=== PATIENT | male | born 1960 | race Caucasian/White ===

== ENCOUNTER 2020-03-27 12:40 | Emergency (ER) | payer BC ==
[~2020-03-27] VITALS: Ht 177.8 cm; Wt 122.5 kg
[2020-03-27 13:18] LABS: BUN 28 mg/dl (7-24); CHLORIDE 105 mmol/L (98-107); POTASSIUM 4.9 mmol/L (3.5-5.1); SODIUM 137 mmol/L (136-145)
== END 2020-03-27 13:39 | disposition home or self-care (01) ==
LOC: ED 12:40
PROVIDERS: Emergency Medicine
DX: E87.5 Hyperkalemia (principal); I10 Essential (primary) hypertension; E78.00 Pure hypercholesterolemia, unspecified; E11.9 Type 2 diabetes mellitus without complications